=== PATIENT | female | born 1975 | race Caucasian/White ===

== ENCOUNTER 2022-02-17 01:00 | Emergency (ER) | payer OTHER ==
[2022-02-17 02:25] LABS: BILIRUBIN 2+ mg/dL (NEGATIVE); BLOOD 3+ Ery/uL (NEGATIVE); GLUCOSE (U) TRACE mg/dL (NORMAL); LEUKOCYTES 3+ Leu/uL (NEGATIVE); NITRITE POSITIVE (NEGATIVE); PROTEIN 3+ mg/dL (NEGATIVE); SPECIFIC GRAVITY 1.025 (1.001-1.030); UROBILINOGEN >=8.0 mg/dL (0.2-1.0)
[2022-02-17 02:32] LABS: CLARITY CLOUDY (CLEAR); COLOR ORANGE (YELLOW)
[2022-02-17 02:34] LABS: BACTERIA 3+; URINARY WBC TNTC
[2022-02-17 02:53] LABS: BASOPHIL 0.2 % (0-2); EOSINOPHIL 0.8 & (0-5); HCT 37.6 % (37.0-47.0); HGB 12.3 g/dl (12.5-16.0); LYMPHOCYTE 17.1 % (15-48); MCH 31.3 pg (25.0-31.0); MCHC 32.7 g/dL (32.0-36.0); MCV 95.7 fL (78.0-100.0); MONOCYTE 6.9 % (0-12); MPV 9.9 fL (6.0-9.5); NEUTROPHIL 74.9 % (41-80); PLT 321 K/uL (150-400); RBC 3.93 M/uL (4.20-5.40); RDW 12.2 % (11.5-14.0); WBC 11.41 K/uL (4.0-10.5)
[2022-02-17 03:12] LABS: ALBUMIN 3.5 g/dL (3.4-5.0); BILIRUBIN - TOTAL 0.7 mg/dL (0.2-1.0); BUN/CREAT RATIO (CALC) 12.2 RATIO; CREATININE 1.39 mg/dL (0.51-0.95); GLOBULIN (CALCULATION) 3.7 g/dL; POTASSIUM 3.8 mmol/L (3.5-5.1); TOTAL PROTEIN 7.2 g/dL (6.4-8.2)
[2022-02-17] MEDS ORDERED: BACTRIM DS TAB1 EACH PO ×2 (04:32→04:41)
[2022-02-17] MEDS ORDERED: NORCO 5-325 TA1 EACH PO (04:41)
[2022-02-17] MEDS ORDERED: PHENERGAN25 M1 PO (04:41)
[2022-02-17] MEDS ORDERED: ONDANSETRON ODT4 MG PO (04:41)
== END 2022-02-17 05:05 | disposition home or self-care (01) ==
LOC: FER 01:00
PROVIDERS: Emergency Medicine
DX: N12 Tubulo-interstitial nephritis, not specified as acute or chronic (principal); E86.0 Dehydration; I10 Essential (primary) hypertension; Z88.6 Allergy status to analgesic agent; Z88.5 Allergy status to narcotic agent; Z88.1 Allergy status to other antibiotic agents; Z91.040 Latex allergy status; Z91.041 Radiographic dye allergy status; Z79.899 Other long term (current) drug therapy; Z28.310 Unvaccinated for COVID-19
CPT/HCPCS: 36415; 80053; 81001; 85025; 87076; 87088; 87186; J0696; J1170; J1885; J2405; J7030